=== PATIENT | male | born 1990 | race Caucasian/White ===

== ENCOUNTER 2022-10-20 09:39 | Emergency (ER) | payer BC, SELFPAY ==
[2022-10-20 09:46] VITALS: BP 146/89; PULSE 72; RESP 16; TEMP 36.7; O2SAT 100; BMI 24.3
[2022-10-20] MEDS: diphenhydrAMINE 25 MG CAPSULE 50 MG PO (10:05)
--- NOTE | 2022-10-20 10:10 | ED.GENADULT ---
HPI - General Adult General Date Seen: 10/20/22 Chief complaint: Unspecified Complaint, Adult Stated complaint: Tongue swelling Time Seen by Provider: 10/20/22 09:51 Source: patient Mode of arrival: ambulatory Limitations: no limitations History of Present Illness HPI narrative: Patient is a 32-year-old gentleman who presents here with tongue swelling, this came on last night, approximately 8:00 p.m. after he had some tea, he says it is more on the right than this left side of his tongue, he called the nurse line today, and they recommended he come in and get seen, he says in the last hour to its really improve, he could relieving speak before but now he can not speak. Denies any fevers chills or sweats there is no history of trauma denies any tooth pain associated with this. No Previous problems with allergic reaction or angioedema. Is on Zoloft and this was started approximately 6 weeks ago. Whole family had COVID 2 weeks ago, he never tested positive but wonders if this could be COVID tongue. Treatments prior to arrival: none Related Data Home Medications Medication Instructions Recorded Confirmed sertraline 50 mg tablet mg 10/20/22 Allergies Allergy/AdvReac Type Severity Reaction Status Date / Time Sulfa (Sulfonamide AdvReac Verified 10/20/22 09:49 Antibiotics) Review of Systems Status of ROS: Reports: 10 or more systems reviewed and unremarkable except as noted in History and below [facility] [place] [facility] [place] Social History Smoking Status: Never smoker Do you use any of these nicotine containing products: None How often do you have a drink containing alcohol: 2-4 times a month How many standard drinks containing alcohol do you have on a typical day: 1 or 2 How often do you have six or more drinks on one occasion: Never AUDIT-C Alcohol total score: 2 Non-prescribed substance use: denies use Exam Narrative: Exam Narrative: He appears normal in room 1, speaking to me normally, his face is otherwise normal with no lip swelling, there is no swelling of his submandibular portion, no meningismus moves normally is TMs are normal, his oropharynx shows a hint of swelling along the right side of his tongue, 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 We did take a picture with his phone of his tongue. His speech is normal, but I just detect a faint lisp. He does tell me that it was worse before. I will give him Benadryl and we will recheck him, to ensure that there is no progression. Const: Vital Signs, click to edit/add: Vital Signs - 24 hr 10/20/22 09:46 10/20/22 11:46 Temperature 98.1 F Pulse Rate [Left P ulse Oximeter] 72 66 Respiratory Rate 16 16 Blood Pressure [Ri ght Upper Arm] 146/89 H 138/81 Pulse Oximetry 100 99 Oxygen Delivery Me thod Room Air Room Air Documenting provider has reviewed patient's vital signs: yes Course Course Hospital Course: Patient was watched here for a total of 3+ hours, he had no worsening of his tongue in fact improved while he was here. I think at this point, we can discharge him home, there is very mild swelling on the right side, I do not see any evidence of an infection, I wonder about use of tea the cause this. We talked about use your Benadryl, and then follow-up any further signs symptoms of worsening her Vital Signs Vital signs: Initial Vital Signs Temperature 98.1 F 10/20/22 09:46 Temperature Source Temporal Artery Scan 10/20/22 09:46 Pulse Rate 72 10/20/22 09:46 Pulse Rhythm 10/20/22 09:46 Respiratory Rate 16 10/20/22 09:46 Blood Pressure 146/89 H 10/20/22 09:46 Blood Pressure Mean 108 10/20/22 09:46 Blood Pressure Position Sitting 10/20/22 09:46 Pulse Oximetry 100 10/20/22 09:46 Oxygen Delivery Method 10/20/22 09:46 Vital Signs Temperature 98.1 F 10/20/22 09:46 Pulse Rate 72 10/20/22 09:46 Respiratory Rate 16 10/20/22 09:46 Blood Pressure 146/89 H 10/20/22 09:46 Pulse Oximetry 100 10/20/22 09:46 Oxygen Delivery Method 10/20/22 09:46 Temperature 98.1 F 10/20/22 09:46 Pulse Rate 66 10/20/22 11:46 Respiratory Rate 16 10/20/22 11:46 Blood Pressure 138/81 10/20/22 11:46 Pulse Oximetry 99 10/20/22 11:46 Oxygen Delivery Method 10/20/22 11:46 Medical Decision Making MDM Narrative Medical decision making narrative: During this evaluation I considered multiple diagnoses including allergic reaction, angioedema, tooth abscess, Carlos's angina, retropharyngeal or epiglottitis. Discharge Plan Discharge Clinical Impression: Mild tongue swelling Patient Disposition: Home, Self-Care Condition: Improved Additional Instructions: Home rest use of Benadryl 25-50 mg q.6h, for the next 24 hours, follow-up with primary care if ongoing signs symptoms or return to the ER if increasing tongue swelling inability to talk. I do not think that this is related to the Zoloft use, but follow-up he be needed with primary care prescribing physician. Prescriptions: No Action sertraline 50 mg tablet Follow Up/Referrals: Mary Villela MD [Primary Care Provider] - Stand Alone Forms: [email or web address] Info Instructions
[2022-10-20 11:46] VITALS: BP 138/81; PULSE 66; RESP 16; O2SAT 99
--- NOTE | 2022-10-20 12:15 | ED.NURSE ---
MD sellers in for DC instructions, pt agrees to returning for worsening symptoms, pt states no improvement but no worsening while here, aware.
== END 2022-10-20 12:16 | disposition home or self-care (01) ==
PROVIDERS: Emergency Provider Family Medicine; PCP Family Medicine
DX: K14.8 Other diseases of tongue (principal)
CPT/HCPCS: 99282; 99284; A9270